=== PATIENT | male | born 1980 | race Caucasian/White ===

== ENCOUNTER → 2017-04-25 | Outpatient (CLI) | payer OTHER ==
--- NOTE | 2017-04-25 07:43 | DIAGNOSTIC IMAGING REPORT ---
Splenic ultrasound CLINICAL HISTORY: SPLENOMEGALY Molly-Hu syndrome COMPARISON STUDY: No previous studies for comparison. FINDINGS: The spleen measures 96 x 87 x 32 mm. No splenic masses are visualized. IMPRESSION: Normal splenic ultrasound. Electronically signed by: Jairo Lechuga M.D. 04/25/2017 7:42 AM Dictated Date/Time: 04/25/2017 7:41 AM
== END | disposition home or self-care (01) ==
LOC: C.ULTR 07:02
PROVIDERS: ATTEND Internal Medicine Hematology & Oncology
DX: R16.1 Splenomegaly, not elsewhere classified (principal)

== ENCOUNTER → 2017-07-07 | Outpatient (CLI) | payer OTHER | END | disposition home or self-care (01) | LOC: C.LAB 09:12 | PROVIDERS: ATTEND Family Medicine | DX: R10.9 Unspecified abdominal pain (principal) ==